=== PATIENT | female | born 1965 | race American Indian/Alaskan Native ===

== ENCOUNTER 2016-11-09 09:52 | Day surgery (SDC) | payer BC ==
--- NOTE | 2016-11-09 11:52 | Short Stay Summary ---
Short Stay Documentation Date of service: 11/09/16 - History Principal diagnosis: thyroid nodule H&P: obtained from office - Allergies and Medications Current Medications: Allergies No Known Allergies Allergy (Verified 11/09/16 10:10) Home Medications Medication Instructions Recorded Confirmed Last Taken Type Levothyroxine [Synthroid] 100 mcg PO DAILY 11/09/16 11/09/16 11/08/16 History - Physical exam General appearance: no acute distress HEENT: Other (enlarged thyroid with multiple nodules) - Brief post op/procedure progress note Date of procedure: 11/09/16 Pre-op diagnosis: thyroid nodule Post-op diagnosis: same Procedure: US thyroid biopsy Anesthesia: local Surgeon: CEM NGUYEN Estimated blood loss: none Pathology: list (FNA, rotex biopsy) Specimen disposition: to lab Condition: stable - Disposition Condition at discharge: Good Disposition: DISCHARGED TO HOME OR SELFCARE
[2016-11-09 12:05] VITALS: BP 163/60
--- NOTE | 2016-11-09 14:41 | Ultrasound Report ---
ULTRASOUND BIOPSY THYROID: HISTORY: Thyroid mass. DESCRIPTION OF PROCEDURE: Informed consent was obtained. Sterile technique was utilized. 1% lidocaine for skin anesthesia. Using ultrasound guidance, FNA and Rotex biopsy was performed on the dominant nodule at the superior pole of the right thyroid lobe which measured up to 3.4 x 3.9 x 3.0 cm. The samples were deemed adequate by the pathologist on site. No complications. IMPRESSION: Successful ultrasound-guided biopsy of the dominant nodule in the right thyroid lobe.
== END 2016-11-09 12:10 | disposition home or self-care (01) ==
LOC: OPU 09:52
PROVIDERS: ATTEND Specialist
DX: E04.1 Nontoxic single thyroid nodule (principal)
CPT/HCPCS: 60100; 76942; 88112; 88172; 88173; 88305

== ENCOUNTER 2017-04-22 10:53 | Outpatient (CLI) | payer BC ==
--- NOTE | 2017-04-22 11:45 | Mammography Report ---
Bilateral mammogram: No previous studies available. CAD study utilized. Findings: Predominance adipose tissue bilaterally. Focal asymmetry in the right subareolar area, right mid breast and right upper breast. No microcalcifications. Benign axillary nodes. Impression: Focal asymmetry right subareolar area, right posterior breast and right upper breast. Comparison with previous studies is recommended. If previous studies are not available spot mag and sonographic examination advised. BI-RADS CATEGORY: 0 = Needs additional imaging evaluation ACR BI-RADS MAMMOGRAPHIC CODES: 0 = Needs additional imaging evaluation; 1 = Negative; 2 = Benign; 3 = Probably benign; 4 = Suspicious; 5 = Malignant; 6 = Known biopsy-proven malignancy COMMENT: 1. Dense breast tissue, i.e., adenosis, fibrocystic changes, etc., may obscure an underlying neoplasm. 2. Approximately 10% of cancers are not detected with mammography. 3. A negative mammography report should not delay biopsy if a clinically suspicious mass is present. COMMENT: Patient follow-up letters are generated in [employer].
== END 2017-04-22 10:54 | disposition home or self-care (01) ==
LOC: MAMMO 10:53
PROVIDERS: ATTEND Obstetrics & Gynecology
DX: Z12.31 Encounter for screening mammogram for malignant neoplasm of breast (principal)
CPT/HCPCS: 77067; G0202

== ENCOUNTER 2017-07-14 08:44 | Outpatient (CLI) | payer BC ==
--- NOTE | 2017-07-14 09:24 | Mammography Report ---
Diagnostic right mammogram. History: Multiple asymmetries on screening study. Findings: Spot compression images in 3 different areas of the right wrist demonstrate no evidence of underlying mass or architectural distortion. Also, the 90 degree lateral medial view demonstrates no focal findings. Findings: No suspicious findings. BI-RADS code: 1. Recommendation: Annual screening.
== END 2017-07-14 08:45 | disposition home or self-care (01) ==
LOC: SPVWC 08:44
PROVIDERS: ATTEND Obstetrics & Gynecology
DX: N64.89 Other specified disorders of breast (principal)
CPT/HCPCS: G0206-RT